=== PATIENT | female | born 2005 | race African-American/Black ===

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

== ENCOUNTER 2023-02-18 10:51 | Emergency (ER) | payer OTHER, SELFPAY ==
[2023-02-18 13:22] LABS: #Eosinphils 0.1 10x3/uL (0.0-0.5); #Monocytes 0.6 10x3/uL (0.0-1.1); %Basophils 0.6 % (0.0-2.0); %Eosinophils 2.3 % (0.0-6.0); %Lymphocytes 43.5 % (18.0-47.0); %Monocytes 12.4 % (0.0-10.0); Hematocrit 40.6 % (34.9-44.5); Hemoglobin 13.7 g/dL (12.0-15.5); Mean Corpuscular HGB CONC 33.7 g/dL (32.0-36.0); Mean Corpuscular Hemoglobin 30.7 pg (27.0-33.0); Mean Platelet Volume 9.5 fl (7.4-10.4); Platelet Count 245 10x3/uL (150-450); RBC Distribution Width 12.9 % (11.5-14.5); Red Blood Cell (RBC) Count 4.46 10x6/uL (3.90-5.03); White Blood Cell (WBC) Count 4.9 10x3/uL (3.5-10.5)
[2023-02-18 13:44] LABS: ALT (SGPT) 13 U/L (8-55); AST (SGOT) 23 U/L (5-30); Albumin 4.2 g/dL (3.5-5.0); Alkaline Phosphatase 67 U/L (40-100); Anion Gap 13 mmol/L (10-20); BUN (Urea Nitrogen) 8 mg/dL (8.4-21.0); Bilirubin, Total 0.4 mg/dL (0.2-1.2); Calc. Creatinine Clearance 0 mL/min (70-130); Calcium 9.5 mg/dL (7.8-10.44); Carbon Dioxide 25 mmol/L (22-29); Chloride 105 mmol/L (98-107); Estimated GFR 112; Globulin 3.3 g/dL (2.4-3.5); Glucose 63 mg/dL (70-105); Magnesium 1.6 mg/dL (1.7-2.2); Potassium 3.9 mmol/L (3.5-5.1); Protein, Total 7.5 g/dL (6.0-8.3); Sodium 139 mmol/L (136-145)
[2023-02-18 13:53] LABS: BHCG - Serum Negative (NEGATIVE); Pregs Control Background? CLEAR/WHITE (CLR/WHITE); Pregs Control Bar Appear? YES (CONTROL BAR)
[2023-02-18 13:55] LABS: Bilirubin Neg (Negative); Blood, Urine 10 (Negative); Clarity Clear (Clear); Glucose, Urine (Dipstick) Normal (Negative); Ketone, Urine Negative (Negative); Leukocyte Negative (Negative); Nitrite Negative (Negative); Protein, Urine (Dipstick) Negative (Neg-Trace); Urobilinogen Normal mg/dL (Less than 2)
[2023-02-18 14:17] LABS: Bacteria/HPF Rare-Few HPF (None Seen); CAUTI Indications for Culture Pelvic or flank pain; RBC/HPF None Seen HPF (0-3); Squamous Epithelial 0-3 HPF (0-3); WBC/HPF None Seen HPF (0-3)
[2023-02-18 14:18] LABS: Urine Culture Reflex No No
== END 2023-02-18 14:35 | disposition home or self-care (01) ==
LOC: CSHERS 10:51
DX: R11.0 Nausea (principal); R42 Dizziness and giddiness
CPT/HCPCS: 36415; 80053; 81001; 83735; 84703; 85025; 99284